=== PATIENT | male | born 1975 ===

== ENCOUNTER 2018-04-14 23:28 | Emergency (ER) | payer SELFPAY ==
[2018-04-14 23:47] VITALS: RESP 16
[2018-04-15] MEDS ORDERED: Sodium Chloride 0.9% 1,000 ML IV STA (00:19)
[2018-04-15] MEDS ORDERED: DiphenhydrAMINE 50 mg/ml Inj IV STA (00:19)
--- NOTE | 2018-04-15 00:43 | ED PDOC ---
HPI: Male Pain Time Seen by Provider: 04/14/18 23:57 Chief Complaint (Nursing): Male Genitourinary Chief Complaint (Provider): Male Genitourinary History Per: Patient History/Exam Limitations: no limitations Onset/Duration Of Symptoms: Days (x1) Associated Symptoms: denies: Nausea, Back Pain Additional Complaint(s): 42 y/o male with no pmhx presents to ER for evaluation of painless hematuria onset 1 day. Patient reports 3 episodes of urine of bright red with blood clots. He denies any back pain, fever, chills or penile discharge. PMD: non provided Past Medical History Reviewed: Historical Data, Nursing Documentation, Vital Signs Vital Signs: Last Vital Signs Temp 98.4 F 04/14/18 23:43 Pulse 116 H 04/14/18 23:43 Resp 16 04/14/18 23:43 BP 164/104 H 04/14/18 23:43 Pulse Ox 98 04/14/18 23:43 - Medical History PMH: HTN - Surgical History Surgical History: No Surg Hx - Family History Family History: States: Unknown Family Hx - Social History Current smoker - smoking cessation education provided: Yes (1 pack/month) Alcohol: Occasional Drugs: Denies - Home Medications Home Medications: Ambulatory Orders Medication Instructions Recorded Cyclobenzaprine [Cyclobenzaprine 10 mg PO TID PRN #15 tab 12/30/14 HCl] Naproxen [Naprosyn Tab] 500 mg PO BID PRN #20 tab 12/30/14 Ciprofloxacin [Cipro] 500 mg PO Q12 #14 tab 04/15/18 - Allergies Allergies/Adverse Reactions: Allergies Allergy/AdvReac Type Severity Reaction Status Date / Time No Known Allergies Allergy Verified 12/30/14 16:04 Review of Systems ROS Statement: Except As Marked, All Systems Reviewed And Found Negative Constitutional: Negative for: Fever, Chills Genitourinary Male: Positive for: Hematuria. Negative for: Penile Discharge Musculoskeletal: Negative for: Back Pain Physical Exam - Reviewed Nursing Documentation Reviewed: Yes Vital Signs Reviewed: Yes - Physical Exam Appears: Positive for: Non-toxic, No Acute Distress Head Exam: Positive for: ATRAUMATIC, NORMOCEPHALIC Skin: Positive for: Normal Color, Warm, Dry Eye Exam: Positive for: Normal appearance, EOMI, PERRL Neck: Positive for: Normal, Painless ROM, Supple Cardiovascular/Chest: Positive for: Regular Rate, Rhythm. Negative for: Murmur Respiratory: Positive for: Normal Breath Sounds. Negative for: Respiratory Distress Gastrointestinal/Abdominal: Positive for: Normal Exam, Soft. Negative for: Tenderness Back: Positive for: Normal Inspection. Negative for: L CVA Tenderness, R CVA Tenderness Extremity: Positive for: Normal ROM. Negative for: Pedal Edema, Deformity Neurologic/Psych: Positive for: Alert, Oriented (x3) - Laboratory Results Result Diagrams: 04/15/18 00:40 04/15/18 00:40 - ECG O2 Sat by Pulse Oximetry: 98 (RA) Pulse Ox Interpretation: Normal Medical Decision Making Medical Decision Making: Time: 12 Initial impression: 42 y/o male with painless hematuria Initial plan: --Labs --CT abd/pelvis 0233 CT Abdomen/Pelvis COMMENTS: The liver is moderately enlarged with decreased attenuation without mass or defect. There is no intra or extrahepatic biliary ductal dilatation. The spleen is normal. The gallbladder is within normal limits. The pancreas is of normal contour and attenuation characteristics. There is no evidence of right adrenal mass. Uncomplicated diverticulosis of the colon. 2.7 cm left adrenal myelolipoma. Moderate amount of fecal residue is noted in the large bowel. Uncomplicated colonic diverticulosis. 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 Moderate amount of fecal residue and large bowels. Both kidneys demonstrate prompt and equal nephrograms. The kidneys are normal in size, shape and configuration. There is no evidence of renal or ureteral mass. No renal or ureteral calculi are identified. There is no hydroureter or hydronephrosis. No evidence for appendicitis. There is no bowel wall thickening. No evidence for small or large bowel obstruction. There is no evidence of abdominal ascites or lymphadenopathy. There is no evidence of intrinsic or extrinsic bladder mass. There is no pelvic ascites or lymphadenopathy. Images of the lung bases show no evidence of pleural or parenchymal mass. There are no pleural effusions. The bony structures are free of lytic or blastic lesions. Bilateral fat containing inguinal hernias without incarceration IMPRESSION: Uncomplicated diverticulosis of the colon. 2.7 cm left adrenal myelolipoma. Moderate amount of fecal residue is noted in the large bowel. Uncomplicated colonic diverticulosis. 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 No evidence of acute abdominal or pelvic pathology. 0244 Patient remains comfortable, stable for discharge. Return precautions provided as well as following up with clinic and urology. Diagnosis is acute cystitis. Scribe Attestation: Documented by Genevieve Samano, acting as a scribe for Rafiq Gaines MD. Provider Scribe Attestation: All medical record entries made by the Scribe were at my direction and personally dictated by me. I have reviewed the chart and agree that the record accurately reflects my personal performance of the history, physical exam, medical decision making, and the department course for this patient. I have also personally directed, reviewed, and agree with the discharge instructions and disposition. Disposition - Clinical Impression Clinical Impression: Cystitis - Disposition Referrals: [facility] [Outside] Bruno De Leon MD [Staff Provider] - Disposition: Routine/Home Disposition Time: 02:44 Condition: STABLE Prescriptions: Ciprofloxacin [Cipro] 500 mg PO Q12 #14 tab Instructions: Acute Cystitis (DC) Forms: [facility] (Turkmen) Print Language: [place] ISLANDER
[2018-04-15 00:57] LABS: BASO # 0.1 K/uL (0.0-0.2); BASO % 1.6 % (0.0-2.0); EOS # 0.1 K/uL (0.0-0.7); EOS % 1.5 % (0.0-4.0); LYMPH # 2.1 K/uL (1.0-4.3); LYMPH % 27.4 % (20.0-40.0); MEAN CELL VOLUME 99.7 fl (80.0-94.0); MEAN PLATELET VOLUME 7.7 fl (7.2-11.7); MONO # 0.9 K/uL (0.0-0.8); MONO % 11.7 % (0.0-10.0); NEUT # 4.5 K/uL (1.8-7.0); NEUT % 57.8 % (50.0-75.0); NRBC % 0.1 % (0.0-0.0); RBC 4.48 Mil/uL (4.40-5.90); RED CELL DISTRIBUTION WIDTH 12.4 % (11.5-14.5); WHITE BLOOD COUNT 7.8 K/uL (4.8-10.8)
[2018-04-15 01:07] LABS: ALB/GLOB RATIO 1.1 (1.0-2.1); ALBUMIN 4.4 g/dL (3.5-5.0); ALT/SGPT 34 U/L (21-72); AST/SGOT 60 U/L (17-59); BLOOD UREA NITROGEN 12 mg/dl (9-20); CALCIUM 8.1 mg/dL (8.4-10.2); GFR NON-AFRICAN AMERICAN > 60
[2018-04-15 01:08] LABS: URINE BILIRUBIN NEGATIVE (NEGATIVE); URINE BLOOD LARGE (NEGATIVE); URINE CLARITY CLEAR (Clear); URINE COLOR STRAW (YELLOW); URINE GLUCOSE (UA) >=500 mg/dL (NEGATIVE); URINE LEUKOCYTE ESTERASE NEG Leu/uL (Negative); URINE PROTEIN NEGATIVE (NEGATIVE); URINE UROBILINOGEN 0.2-1.0 mg/dL (0.2-1.0)
[2018-04-15 01:25] LABS: HEMOGLOBIN 14.9 g/dL (12.0-18.0)
[2018-04-15 01:26] LABS: MEAN CORPUSCULAR HEMOGLOBIN 33.6 pg (27.0-31.0); MEAN CORPUSCULAR HGB CONC 33.3 g/dL (33.0-37.0)
[2018-04-15] MEDS ORDERED: Iohexol 300 100 ML IJ ONE (01:27)
[2018-04-15] MEDS ORDERED: Sodium Chloride 0.9% 50 ML IV ONE (01:27)
[2018-04-15 03:40] VITALS: BP 147/100; PULSE 87; TEMP 97.8; O2SAT 95
--- NOTE | 2018-04-15 10:54 | CT ---
Date of service: 04/15/2018 PROCEDURE: CT Abdomen and Pelvis with contrast HISTORY: hematuria COMPARISON: None available. TECHNIQUE: CT scan of the abdomen and pelvis was performed after administration of intravenous contrast. Oral contrast was not administered. Coronal and sagittal reformatted images were obtained. Contrast dose: Radiation dose: Total exam DLP = 931.48 mGy-cm. This CT exam was performed using one or more of the following dose reduction techniques: Automated exposure control, adjustment of the mA and/or kV according to patient size, and/or use of iterative reconstruction technique. FINDINGS: LOWER THORAX: The visualized lungs are clear. LIVER: Moderate hepatomegaly. Fatty liver. No gross lesion or ductal dilatation. GALLBLADDER AND BILE DUCTS: Well distended. No calcified gallstones, wall thickening or pericholecystic fluid. PANCREAS: Normal in size with homogeneous enhancement. No gross lesion or ductal dilatation. SPLEEN: Normal in size and appearance. ADRENALS: The right adrenal gland is normal without discrete nodule. There is a 2.7 x 2.9 cm myelolipoma in the left adrenal gland. KIDNEYS AND URETERS: Normal in size with homogeneous enhancement. No hydronephrosis. No solid mass. VASCULATURE: No aortic aneurysm. BOWEL: Evaluation of the bowel is limited in the absence of oral contrast. The small bowel loops are normal in caliber. There is moderate amount of stool in the colon and fecal stasis in the rectum. No bowel wall thickening or obstruction. APPENDIX: Normal appendix. PERITONEUM: No free fluid. No free air. LYMPH NODES: No enlarged lymph nodes. BLADDER: Well distended and normal in appearance. REPRODUCTIVE: There is a 2.7 x 2.3 cm well-circumscribed round midline lower density lesion in the prostate gland. BONES: No acute fracture. Within normal limits for the patient's age. OTHER FINDINGS: None. IMPRESSION: 1. No acute abdominal or pelvic abnormality. No nephrolithiasis or obstructive uropathy. 2. Moderate hepatomegaly and fatty liver. 3. 2.9 cm benign myelolipoma in the left adrenal gland. 4. Well-circumscribed round cystic lesion in the midline prostate gland, could represent a TURP defect, benign cyst or dilatation of the prostatic urethra. A preliminary report was provided by [employer].
== END 2018-04-15 03:39 | disposition home or self-care (01) ==
LOC: H.ER 23:28
DX: N30.01 Acute cystitis with hematuria (principal); K57.30 Diverticulosis of large intestine without perforation or abscess without bleeding; I10 Essential (primary) hypertension
CPT/HCPCS: 74177; 80053; 81003; 85025; 87086; 99283; J7030; Q9967

== ENCOUNTER 2018-07-12 17:57 | Inpatient (IN) | payer SELFPAY ==
[2018-07-12] MEDS ORDERED: Sodium Chloride 0.9% 1,000 ML IV STA ×3 (18:40→19:11)
--- NOTE | 2018-07-12 18:55 | ED PDOC ---
HPI: Abdomen Time Seen by Provider: 07/12/18 18:14 Chief Complaint (Nursing): Abdominal Pain Chief Complaint (Provider): Abdominal Pain History Per: Patient History/Exam Limitations: no limitations Onset/Duration Of Symptoms: Days (3X) Current Symptoms Are (Timing): Constant Severity: Moderate Additional Complaint(s): 42 year old male with past medical history of hypertension and Hypercholesterolemia presents to the ED with abdominal pain onset 3 days. Patient states that his last bowel movement was 5 days ago. Patient usually defecates 3 times a week. Patient reports that the pain has been constant and he has not taken any over the counter medication. Patient denies fever, nausea and vomiting. PMD: none provided Past Medical History Reviewed: Historical Data, Nursing Documentation, Vital Signs Vital Signs: Last Vital Signs Temp 98.3 F 07/12/18 18:02 Pulse 112 H 07/12/18 18:02 Resp 20 07/12/18 18:02 BP 140/84 07/12/18 18:02 Pulse Ox 97 07/12/18 18:02 BRAYDEN Report Viewed: Yes - Medical History PMH: HTN, Hypercholesterolemia, Hyperlipidemia Denies: Chronic Kidney Disease - Surgical History Surgical History: No Surg Hx - Family History Family History: States: No Known Family Hx - Social History Current smoker - smoking cessation education provided: Yes (less than 10 cigarettes daily ) Alcohol: Social - Home Medications Home Medications: Ambulatory Orders Medication Instructions Recorded Fenofibrate [Tricor] 145 mg PO DAILY #30 tab 07/13/18 Lisinopril/Hydrochlorothiazide 1 tab PO DAILY 07/13/18 [Lisinopril-Hctz 20-12.5 mg Tab] metFORMIN [glucOPHAGE] 500 mg PO BIDWM #60 tab 07/13/18 - Allergies Allergies/Adverse Reactions: Allergies Allergy/AdvReac Type Severity Reaction Status Date / Time No Known Allergies Allergy Verified 07/12/18 18:02 Review of Systems ROS Statement: Except As Marked, All Systems Reviewed And Found Negative Constitutional: Negative for: Fever Gastrointestinal: Positive for: Abdominal Pain (constant ). Negative for: Nausea, Vomiting Physical Exam - Reviewed Nursing Documentation Reviewed: Yes Vital Signs Reviewed: Yes - Physical Exam Appears: Positive for: In Acute Distress (Moderate painful distress ) Head Exam: Positive for: ATRAUMATIC, NORMAL INSPECTION, NORMOCEPHALIC Skin: Positive for: Normal Color, Warm, DRY Eye Exam: Positive for: EOMI, Normal appearance, PERRL Cardiovascular/Chest: Positive for: Regular Rate, Rhythm. Negative for: Murmur Respiratory: Positive for: Normal Breath Sounds Gastrointestinal/Abdominal: Positive for: Tenderness (left upper quadrant ). Negative for: Guarding, Rebound Extremity: Positive for: Normal ROM (upper and lower ) Neurological/Psych: Positive for: Awake, Alert, Normal Tone, Oriented. Negative for: Motor/Sensory Deficits, Facial Droop - Laboratory Results Result Diagrams: 07/13/18 07:00 07/13/18 07:00 - ECG O2 Sat by Pulse Oximetry: 97 (RA) Pulse Ox Interpretation: Normal Medical Decision Making Medical Decision Making: Time: 18:14 Initial Impression: Abdominal pain Initial Impression: * Abdomen and pelvis CT IV contrast only * Complete metabolic panel * ED urine dipstick (POC) * CBC with differentials Morphine 2 mg IV Sodium Chloride 0.9% 1,000 ml IV 125 mls/hr urinalysis 19:10 * VBG Shock Panel * Sodium Chloride 0.9% 1000 ml IV 1000 mls/hr * Glucose, blood, POC Patient to be signed out to Dr. Gaines at this time pending workup, reevaluation and final disposition. Scribe Attestation: Documented by Apollo Alford, acting as a scribe for Kym Hewitt MD Provider Scribe Attestation: All medical record entries made by the Scribe were at my direction and personally dictated by me. I have reviewed the chart and agree that the record accurately reflects my personal performance of the history, physical exam, medic al decision making, and the department course for this patient. I have also personally directed, reviewed, and agree with the discharge instructions and disposition. Disposition - Clinical Impression Clinical Impression: Pancreatitis - Patient ED Disposition Is Patient to be Admitted: Transfer of Care - Disposition Disposition: Transfer of Care Disposition Time: 19:00 Condition: STABLE Patient Signed Over To: Rafiq Gaines
[2018-07-12 19:21] LABS: BASO # 0.1 K/uL (0.0-0.2); BASO % 0.5 % (0.0-2.0); EOS # 0.1 K/uL (0.0-0.7); EOS % 0.8 % (0.0-4.0); HEMOGLOBIN 15.2 g/dL (12.0-18.0); LYMPH # 1.1 K/uL (1.0-4.3); LYMPH % 9.8 % (20.0-40.0); MEAN CELL VOLUME 97.8 fl (80.0-94.0); MEAN CORPUSCULAR HEMOGLOBIN 33.9 pg (27.0-31.0); MEAN CORPUSCULAR HGB CONC 34.7 g/dL (33.0-37.0); MEAN PLATELET VOLUME 7.6 fl (7.2-11.7); NEUT # 9.2 K/uL (1.8-7.0); NEUT % 79.9 % (50.0-75.0); NRBC % 0.2 % (0.0-0.0); PLATELET COUNT 209 K/uL (130-400); RED CELL DISTRIBUTION WIDTH 12.5 % (11.5-14.5); WHITE BLOOD COUNT 11.5 K/uL (4.8-10.8)
[2018-07-12 19:27] LABS: SQUAMOUS EPITHIAL < 1 /hpf (0-5); URINE BILIRUBIN NEGATIVE (NEGATIVE); URINE BLOOD NEGATIVE (NEGATIVE); URINE CLARITY SLIGHTY-CLOUDY (Clear); URINE COLOR YELLOW (YELLOW); URINE GLUCOSE (UA) >=500 mg/dL (NEGATIVE); URINE LEUKOCYTE ESTERASE NEG Leu/uL (Negative); URINE PROTEIN NEGATIVE (NEGATIVE); URINE UROBILINOGEN 0.2-1.0 mg/dL (0.2-1.0)
[2018-07-12 19:28] LABS: ALBUMIN 4.3 g/dL (3.5-5.0); BLOOD UREA NITROGEN 10 mg/dl (9-20); CALCIUM 9.1 mg/dL (8.4-10.2); GFR NON-AFRICAN AMERICAN > 60
[2018-07-12 19:59] LABS: ALT/SGPT 33 U/L (21-72); AST/SGOT 34 U/L (17-59)
[2018-07-12 20:10] LABS: VENOUS BLOOD GAS BASE EXCESS -1.2 mmol/L (0.0-2.0); VENOUS BLOOD GAS PCO2 39 mmHg (40-60); VENOUS BLOOD GAS PO2 29 mm/Hg (30-55); VENOUS BLOOD PH 7.39 (7.32-7.43)
--- NOTE | 2018-07-12 20:10 | ED PDOC ---
- Laboratory Results Result Diagrams: 07/13/18 07:00 07/13/18 07:00 Lab Results: Total Bilirubin 1.1 mg/dl (0.2-1.3) 07/12/18 19:04 AST 34 U/L (17-59) 07/12/18 19:04 ALT 33 U/L (21-72) 07/12/18 19:04 Alkaline Phosphatase 96 U/L (38-126) 07/12/18 19:04 Total Protein 8.6 G/DL (6.3-8.2) H 07/12/18 19:04 Albumin 4.3 g/dL (3.5-5.0) 07/12/18 19:04 Globulin 4.3 gm/dL (2.2-3.9) H 07/12/18 19:04 Albumin/Globulin Ratio 1.0 (1.0-2.1) 07/12/18 19:04 Urine Color Yellow (YELLOW) 07/12/18 19:04 Urine Clarity Slighty-cloudy (Clear) 07/12/18 19:04 Urine pH 6.0 (5.0-8.0) 07/12/18 19:04 Ur Specific [place] 1.040 (1.003-1.030) H 07/12/18 19:04 Urine Protein Negative mg/dL (NEGATIVE) 07/12/18 19:04 Urine Glucose (UA) >=500 mg/dL (NEGATIVE) 07/12/18 19:04 Urine Ketones 20 mg/dL (NEGATIVE) 07/12/18 19:04 Urine Blood Negative (NEGATIVE) 07/12/18 19: Urine Nitrate Negative (NEGATIVE) 07/12/18 19: Urine Bilirubin Negative (NEGATIVE) 07/12/18 19:04 Urine Urobilinogen 0.2-1.0 mg/dL (0.2-1.0) 07/12/18 19:04 Ur Leukocyte Esterase Neg Barbi/uL (Negative) 07/12/18 19:04 Urine RBC (Auto) 3 /hpf (0-3) 07/12/18 19:04 Urine Microscopic WBC < 1 /hpf (0-5) 07/12/18 19:04 Ur Squamous Epith Cells < 1 /hpf (0-5) 07/12/18 19:04 - ECG O2 Sat by Pulse Oximetry: 97 (RA) Pulse Ox Interpretation: Normal Medical Decision Making Medical Decision Makin:00 Patient signed out to this provider by Dr. Hewitt pending CT, re-evaluation and final disposition. 215 CT Abd Pelvis FINDINGS: LUNG BASES: The lung bases appear clear. No pleural effusions are seen. LIVER: There is hepatomegaly noted. The liver measured 19.9 cm in the midclavicular line. Associated hepatic steatosis is noted. GALLBLADDER AND BILE DUCTS: The gallbladder appears within normal limits. No radioopaque gallstones are seen. No biliary ductal dilatation is evident. PANCREAS: Peripancreatic inflammatory stranding is seen about the head-uncinate process and distal tail regions compatible with acute pancreatitis. SPLEEN: Unremarkable. ADRENAL GLANDS: A 3.2 cm left adrenal myelolipoma is again noted. Unremarkable right adrenal gland. KIDNEYS, URETERS, AND BLADDER: The kidneys appear within normal limits. There is no hydronephrosis or hydroureter. No urinary calculi are seen. The urinary bladder appeared normal in size and configuration. STOMACH AND BOWEL: There is mucosal wall thickening and fluid in the lumen of that the duodenum and small intestinal tract compatible with duodenitis and diffuse enteritis. Infectious or inflammatory etiologies are thought most likely.No evidence of bowel obstruction. No evidence suggesting colitis. APPENDIX: No evidence of acute appendicitis on CT examination. PERITONEUM: No free fluid. No free air. There is haziness in the central root of the mesentery compatible with mesenteriitis. Small bilateral inguinal hernias are identified which each contain fat; slightly larger in size on the right. LYMPH NODES: No lymphadenopathy is evident. REPRODUCTIVE: The seminal vesicles appeared normal and symmetrical in size. A 2.7 cm central prostatic benign cyst is again noted. VASCULATURE: No evidence of abdominal aortic aneurysm. SOFT TISSUES: Calcified injection granulomata are seen in the buttocks bilaterally. BONES: No aggressive appearing osseous lesion. No acute osseous pathology evident. IMPRESSION: 1. Evidence of acute pancreatitis involving the head-uncinate process and distal tail. 2. Evidence of duodenitis and diffuse enteritis. 3. Hepatomegaly with associated steatosis. 4. Evidence of mesenteritis in the central root of the mesentery. 5. 2.7 cm benign central prostatic cyst. 6. Small bilateral inguinal hernias which each contain fat. 00:50 On reevaluation patient reports persistent epigastric pain. Will admit patient. Condition is fair, diagnosis is acute pancreatitis. Case referred to Dr. Raza. Scribe Attestation: Documented by Blanca James and Roland Osman, acting as a scribe Kofi Gaines MD Provider Scribe Attestation: All medical record entries made by the Scribe were at my direction and personally dictated by me. I have reviewed the chart and agree that the record accurately reflects my personal performance of the history, physical exam, medical decision making, and the department course for this patient. I have also personally directed, reviewed, and agree with the discharge instructions and disposition Disposition - Clinical Impression Clinical Impression: Pancreatitis - POA Present On Arrival: None - Disposition Disposition: Admitted as In-Patient Disposition Time: 00:50 Condition: FAIR
[2018-07-12] MEDS ORDERED: Sodium Chloride 0.9% 100 ML ONE (21:04)
[2018-07-12] MEDS ORDERED: Iohexol 300 100 ML IJ ONE (21:04)
[2018-07-12 21:40] LABS: BANDS 2 % (0-2); BASOPHIL 1 % (0-2); EOSINOPHIL 1 % (0-7); LYMPHOCYTE 11 % (20-50); MONOCYTE 9 % (0-10); NEUTROPHIL 76 % (42-75); PLATELET ESTIMATE NORMAL (NORMAL); TOTAL CELLS COUNTED 100
[2018-07-12] MEDS ORDERED: Lactated Ringer's 1,000 ML IV STA (23:58)
[2018-07-13] LABS: LIPASE 135 U/L (23-300)
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
[2018-07-13] MEDS: Sodium Chloride 0.9% 1,000 ML IV SCH ×4 (02:25→12:06)
[2018-07-13 08:14] LABS: HEMOGLOBIN 13.6 g/dL (12.0-18.0); MEAN CELL VOLUME 99.2 fl (80.0-94.0); MEAN CORPUSCULAR HEMOGLOBIN 34.1 pg (27.0-31.0); MEAN CORPUSCULAR HGB CONC 34.3 g/dL (33.0-37.0); RBC 3.99 Mil/uL (4.40-5.90); RED CELL DISTRIBUTION WIDTH 12.7 % (11.5-14.5); WHITE BLOOD COUNT 9.5 K/uL (4.8-10.8)
[2018-07-13 08:19] LABS: INR 1.1; PROTHROMBIN TIME 12.1 Seconds (9.8-13.1)
[2018-07-13 08:21] LABS: PARTIAL THROMBOPLASTIN TIME 31.3 Seconds (25.6-37.1)
[2018-07-13 08:35] VITALS: BP 132/80; PULSE 103; RESP 20; TEMP 99.5
[2018-07-13 08:44] LABS: LDL CHOLESTEROL 53 mg/dL (0-129)
[2018-07-13 08:53] LABS: ALBUMIN 3.5 g/dL (3.5-5.0); ALT/SGPT 30 U/L (21-72); AMYLASE 54 U/L (30-110); AST/SGOT 21 U/L (17-59); BLOOD UREA NITROGEN 9 mg/dl (9-20); CALCIUM 8.3 mg/dL (8.4-10.2); GFR NON-AFRICAN AMERICAN > 60; HDL CHOLESTEROL 29 MG/DL (30-70); LIPASE 79 U/L (23-300)
[2018-07-13] MEDS ORDERED: Enoxaparin 40 mg Syringe SC SCH (09:00)
--- NOTE | 2018-07-13 12:16 | CT ---
Date of service: 07/12/2018 PROCEDURE: CT abdomen pelvis HISTORY: Abd pain, constipation X 5 days COMPARISON: Comparison made with prior CT scan abdomen and pelvis dated 04/15/2018. TECHNIQUE: Contiguous axial images of the abdomen pelvis performed following intravenous injection of approximately 95 cc Omnipaque 300 contrast material. Additional 2D sagittal and coronal sagittal reformats generated. Radiation dose: Total exam DLP = 971.82 mGy-cm. This CT exam was performed using one or more of the following dose reduction techniques: Automated exposure control, adjustment of the mA and/or kV according to patient size, and/or use of iterative reconstruction technique. FINDINGS: LOWER THORAX: Cardiomegaly. No significant pericardial effusion. Minor passive/dependent type atelectasis both posterior sulci. LIVER: Liver is enlarged measuring nearly 23 cm in CC dimension. Moderate-significant fatty hepatic infiltration. No obvious hepatic mass or collection.. Portal and splenic veins are opacified. GALLBLADDER AND BILE DUCTS: Gallbladder is physiologically distended with no evidence of intraluminal gallbladder calculi. PANCREAS: There are edematous inflammatory changes of the pancreatic head region and proximal body with surrounding infiltration and fluid. Findings are consistent with acute pancreatitis. Infiltration/inflammatory changes extend into the surrounding mesentery. There also appears to be some wall thickening of the 3rd and 4th portions of the duodenum likely reactive.. Infiltration changes also seen extending into the anterior right para renal space. SPLEEN: Unremarkable. No splenomegaly. ADRENALS: Findings consistent with myelolipoma left adrenal gland measuring approximately 2.7 cm.. KIDNEYS AND URETERS: Kidneys demonstrate symmetric nephrograms. No evidence of nephrolithiasis or hydronephrosis. BLADDER: Grossly unremarkable. REPRODUCTIVE: There is an approximately 2.8 x 2.3 cm low-attenuation focus in the posterior aspect of the prostate gland which could represent a proteinaceous cystic collection. Clinical correlation recommended; consider follow-up prostatic ultrasound or MRI of the prostate gland. APPENDIX: Normal appendix BOWEL: Evaluation of the bowel is limited due to the lack of oral contrast material. Stomach is incompletely distended with slight thick-walled appearance. Several loops of proximal small bowel exhibit mild wall thickening which may be reactive to the aforementioned pancreatitis however localized enteritis not excluded. Moderately large amount of stool seen throughout most of the colon consistent with this patient's history of constipation. PERITONEUM: As above. No free intraperitoneal air. Small fat containing umbilical hernia.. Bilateral fat containing inguinal hernias right larger than left. LYMPH NODES: Unremarkable. No enlarged lymph nodes. VASCULATURE: Unremarkable. No aortic aneurysm. No aortic atherosclerotic calcification or mural plaque present. BONES: Mild multilevel degenerative spondylosis of the thoracic and lumbar spine. OTHER FINDINGS: Incidental note made of several calcified injection granulomata both buttocks. IMPRESSION: Findings consistent with acute pancreatitis. Mild wall thickening of the duodenum and proximal small bowel likely reactive to the aforementioned adjacent inflammatory changes within and surrounding the pancreas. However, the possibility of a concomitant enteritis not excluded. Constipation. Hepatomegaly with moderate to significant fatty infiltration. Redemonstrated is a left adrenal myelolipoma. Redemonstrated is a 2.8 x 2.3 cm low-attenuation lesion within the prostate gland likely representing a proteinaceous cyst. This could be confirmed with follow-up prostatic ultrasound or MRI
--- NOTE | 2018-07-13 14:43 | CP.PCM.DIS ---
<Josselin Campbell - Last Filed: 07/13/18 15:19> Provider - Provider Date of Admission: 07/13/18 00:49 Attending physician: Connor Raza Primary care physician: [facility] Consults: 07/13/18 04:25 Social Work Referral Routine Comment: smoking cessation Physician Instructions: Reason For Exam: smoking cessation Time Spent in preparation of Discharge (in minutes): 25 Diagnosis - Discharge Diagnosis (1) Hypertriglyceridemia Status: Acute (2) Diabetes Status: Acute Hospital Course - Lab Results Lab Results: Most Recent Lab Values WBC 9.5 K/uL (4.8-10.8) 07/13/18 07:00 RBC 3.99 Mil/uL (4.40-5.90) L 07/13/18 07:00 Hgb 13.6 g/dL (12.0-18.0) 07/13/18 07:00 Hct 39.6 % (35.0-51.0) 07/13/18 07:00 MCV 99.2 fl (80.0-94.0) H 07/13/18 07:00 MCH 34.1 pg (27.0-31.0) H 07/13/18 07:00 MCHC 34.3 g/dL (33.0-37.0) 07/13/18 07:00 RDW 12.7 % (11.5-14.5) 07/13/18 07:00 Plt Count 197 K/uL (130-400) 07/13/18 07:00 MPV 7.6 fl (7.2-11.7) 07/12/18 19:04 Neut % (Auto) 79.9 % (50.0-75.0) H 07/12/18 19:04 Lymph % (Auto) 9.8 % (20.0-40.0) L 07/12/18 19:04 [place] % (Auto) 9.0 % (0.0-10.0) 07/12/18 19:04 Eos % (Auto) 0.8 % (0.0-4.0) 07/12/18 19:04 Baso % (Auto) 0.5 % (0.0-2.0) 07/12/18 19:04 Neut # (Auto) 9.2 K/uL (1.8-7.0) H 07/12/18 19:04 Lymph # (Auto) 1.1 K/uL (1.0-4.3) 07/12/18 19:04 [place] # (Auto) 1.0 K/uL (0.0-0.8) H 07/12/18 19:04 Eos # (Auto) 0.1 K/uL (0.0-0.7) 07/12/18 19:04 Baso # (Auto) 0.1 K/uL (0.0-0.2) 07/12/18 19:04 Neutrophils % (Manual) 76 % (42-75) H 07/12/18 19:04 Band Neutrophils % 2 % (0-2) 07/12/18 19:04 Lymphocytes % (Manual) 11 % (20-50) L 07/12/18 19:04 Monocytes % (Manual) 9 % (0-10) 07/12/18 19:04 Eosinophils % (Manual) 1 % (0-7) 07/12/18 19:04 Basophils % (Manual) 1 % (0-2) 07/12/18 19:04 Platelet Estimate Normal (NORMAL) 07/12/18 19:04 PT 12.1 Seconds (9.8-13.1) 07/13/18 07:00 INR 1.1 07/13/18 07:00 APTT 31.3 Seconds (25.6-37.1) 07/13/18 07:00 pO2 29 mm/Hg (30-55) L 07/12/18 20:02 VBG pH 7.39 (7.32-7.43) 07/12/18 20:02 VBG pCO2 39 mmHg (40-60) L 07/12/18 20:02 VBG HCO3 22.8 mmol/L 07/12/18 20:02 VBG Total CO2 24.8 mmol/L (22-28) 07/12/18 20:02 VBG O2 Sat (Calc) 58.7 % (40-65) 07/12/18 20:02 VBG Base Excess -1.2 mmol/L (0.0-2.0) L 07/12/18 20:02 VBG Potassium 4.5 mmol/L (3.6-5.2) 07/12/18 20:02 Sodium 132.0 mmol/L (132-148) 07/12/18 20:02 Chloride 100.0 mmol/L (98-107) 07/12/18 20:02 Glucose 364 mg/dL (75-110) H 07/12/18 20:02 Lactate 1.6 mmol/L (0.7-2.1) 07/12/18 20:02 FiO2 21.0 % 07/12/18 20:02 Sodium 138 mmol/l (132-148) 07/13/18 07:00 Potassium 3.8 MMOL/L (3.6-5.0) 07/13/18 07:00 Chloride 108 mmol/L (98-107) H 07/13/18 07:00 Carbon Dioxide 17 mmol/L (22-30) L 07/13/18 07:00 Anion Gap 17 (10-20) 07/13/18 07:00 BUN 9 mg/dl (9-20) 07/13/18 07:00 Creatinine 0.4 mg/dl (0.8-1.5) L 07/13/18 07:00 Est GFR ( Amer) > 60 07/13/18 07:00 Est GFR (Non-Af Amer) > 60 07/13/18 07:00 POC Glucose (mg/dL) 297 mg/dL (65-110) H 07/12/18 21:19 Random Glucose 244 mg/dL (75-110) H 07/13/18 07:00 Calcium 8.3 mg/dL (8.4-10.2) L 07/13/18 07:00 Phosphorus 2.6 mg/dl (2.5-4.5) 07/13/18 07:00 Magnesium 1.8 MG/DL (1.6-2.3) 07/13/18 07:00 Total Bilirubin 1.0 mg/dl (0.2-1.3) 07/13/18 07:00 AST 21 U/L (17-59) 07/13/18 07:00 ALT 30 U/L (21-72) 07/13/18 07:00 Alkaline Phosphatase 63 U/L (38-126) 07/13/18 07:00 Total Protein 7.0 G/DL (6.3-8.2) 07/13/18 07:00 Albumin 3.5 g/dL (3.5-5.0) 07/13/18 07:00 Globulin 3.4 gm/dL (2.2-3.9) 07/13/18 07:00 Albumin/Globulin Ratio 1.0 (1.0-2.1) 07/13/18 07:00 Triglycerides 1012 mg/DL (0-149) H 07/13/18 07:00 Cholesterol 362 mg/dL (0-199) H 07/13/18 07:00 LDL Cholesterol Direct 53 mg/dL (0-129) 07/13/18 07:00 HDL Cholesterol 29 MG/DL (30-70) L 07/13/18 07:00 Amylase 54 U/L (30-110) 07/13/18 07:00 Lipase 79 U/L (23-300) 07/13/18 07:00 TSH 3rd Generation 1.44 mIU/ML (0.46-4.68) 07/13/18 07:00 Venous Blood Potassium 4.5 mmol/L (3.6-5.2) 07/12/18 20:02 Urine Color Yellow (YELLOW) 07/12/18 19:04 Urine Clarity Slighty-cloudy (Clear) 07/12/18 19:04 Urine pH 6.0 (5.0-8.0) 07/12/18 19:04 Ur Specific [place] 1.040 (1.003-1.030) H 07/12/18 19:04 Urine Protein Negative mg/dL (NEGATIVE) 07/12/18 19:04 Urine Glucose (UA) >=500 mg/dL (NEGATIVE) 07/12/18 19:04 Urine Ketones 20 mg/dL (NEGATIVE) 07/12/18 19:04 Urine Blood Negative (NEGATIVE) 07/12/18 19:04 Urine Nitrate Negative (NEGATIVE) 07/12/18 19:04 Urine Bilirubin Negative (NEGATIVE) 07/12/18 19:04 Urine Urobilinogen 0.2-1.0 mg/dL (0.2-1.0) 07/12/18 19:04 Ur Leukocyte Esterase Neg Barbi/uL (Negative) 07/12/18 19:04 Urine RBC (Auto) 3 /hpf (0-3) 07/12/18 19:04 Urine Microscopic WBC < 1 /hpf (0-5) 07/12/18 19:04 Ur Squamous Epith Cells < 1 /hpf (0-5) 07/12/18 19:04 - Hospital Course Hospital Course: 42 yo M with prior history of prediabetes, hypertriglyceridemia, obesity, hypertension, presented to ED with 3 days of pressure like epigastric abdominal pain; admitted to [facility] due to abdominal pain and initially suspected pancreatitis based on CT abdomen, which also showed duodenitis. Lipase levels was not elevated (135). Triglycerides were elevated at 1012, and cholesterol 362 (LDL 53, HDL 29). He also had elevated blood glucose readings. On admission, he was made NPO, started on IV hydration at 300 ml/hr and pain was controlled with morphine. Repeat am lipase was 79. This morning, patient reported that he felt much better. Regular diet started, and patient was seen after lunch; tolerated lunch this afternoon without difficulty, pain, nausea or vomiting. He remained afebrile and hemodynamically stable throughout admission. He is stable for discharge at this time, with new prescriptions for metformin and fenofibrate. He has a follow up appointment at the [facility] on 07/22/18 at 11 am; patient is aware of appointment time. Discharge Exam - Head Exam Head Exam: ATRAUMATIC, NORMOCEPHALIC - Eye Exam Eye Exam: Normal appearance - ENT Exam ENT Exam: Mucous Membranes Moist - Respiratory Exam Respiratory Exam: Clear to PA & Lateral, NORMAL BREATHING PATTERN - Cardiovascular Exam Cardiovascular Exam: REGULAR RHYTHM, +S1, +S2 - GI/Abdominal Exam GI & Abdominal Exam: Normal Bowel Sounds, Soft. absent: Tenderness - Extremities Exam Extremities exam: normal inspection - Neurological Exam Neurological exam: Alert, Oriented x3 - Skin Skin Exam: Dry, Normal Color Discharge Plan - Discharge Medications Prescriptions: Fenofibrate [Tricor] 145 mg PO DAILY #30 tab metFORMIN [glucOPHAGE] 500 mg PO BIDWM #60 tab - Follow Up Plan Condition: FAIR Disposition: HOME/ ROUTINE Instructions: Acute Abdomen (Belly Pain), Adult (DC) Referrals: [facility] [Outside] - 07/22/18 11:00 am () <Yang Bronson - Last Filed: 07/14/18 09:17> Provider - Provider Date of Admission: 07/13/18 00:49 Attending physician: Connor Raza Consults: 07/13/18 04:25 Social Work Referral Routine Comment: smoking cessation Physician Instructions: Reason For Exam: smoking cessation [facility] Course - Lab Results Lab Results: Most Recent Lab Values WBC 9.5 K/uL (4.8-10.8) 07/13/18 07:00 RBC 3.99 Mil/uL (4.40-5.90) L 07/13/18 07:00 Hgb 13.6 g/dL (12.0-18.0) 07/13/18 07:00 Hct 39.6 % (35.0-51.0) 07/13/18 07:00 MCV 99.2 fl (80.0-94.0) H 07/13/18 07:00 MCH 34.1 pg (27.0-31.0) H 07/13/18 07:00 MCHC 34.3 g/dL (33.0-37.0) 07/13/18 07:00 RDW 12.7 % (11.5-14.5) 07/13/18 07:00 Plt Count 197 K/uL (130-400) 07/13/18 07:00 MPV 7.6 fl (7.2-11.7) 07/12/18 19:04 Neut % (Auto) 79.9 % (50.0-75.0) H 07/12/18 19:04 Lymph % (Auto) 9.8 % (20.0-40.0) L 07/12/18 19:04 [place] % (Auto) 9.0 % (0.0-10.0) 07/12/18 19:04 Eos % (Auto) 0.8 % (0.0-4.0) 07/12/18 19:04 Baso % (Auto) 0.5 % (0.0-2.0) 07/12/18 19:04 Neut # (Auto) 9.2 K/uL (1.8-7.0) H 07/12/18 19:04 Lymph # (Auto) 1.1 K/uL (1.0-4.3) 07/12/18 19:04 [place] # (Auto) 1.0 K/uL (0.0-0.8) H 07/12/18 19:04 Eos # (Auto) 0.1 K/uL (0.0-0.7) 07/12/18 19:04 Baso # (Auto) 0.1 K/uL (0.0-0.2) 07/12/18 19:04 Neutrophils % (Manual) 76 % (42-75) H 07/12/18 19:04 Band Neutrophils % 2 % (0-2) 07/12/18 19:04 Lymphocytes % (Manual) 11 % (20-50) L 07/12/18 19:04 Monocytes % (Manual) 9 % (0-10) 07/12/18 19:04 Eosinophils % (Manual) 1 % (0-7) 07/12/18 19:04 Basophils % (Manual) 1 % (0-2) 07/12/18 19:04 Platelet Estimate Normal (NORMAL) 07/12/18 19:04 PT 12.1 Seconds (9.8-13.1) 07/13/18 07:00 INR 1.1 07/13/18 07:00 APTT 31.3 Seconds (25.6-37.1) 07/13/18 07:00 pO2 29 mm/Hg (30-55) L 07/12/18 20:02 VBG pH 7.39 (7.32-7.43) 07/12/18 20:02 VBG pCO2 39 mmHg (40-60) L 07/12/18 20:02 VBG HCO3 22.8 mmol/L 07/12/18 20:02 VBG Total CO2 24.8 mmol/L (22-28) 07/12/18 20:02 VBG O2 Sat (Calc) 58.7 % (40-65) 07/12/18 20:02 VBG Base Excess -1.2 mmol/L (0.0-2.0) L 07/12/18 20:02 VBG Potassium 4.5 mmol/L (3.6-5.2) 07/12/18 20:02 Sodium 132.0 mmol/L (132-148) 07/12/18 20:02 Chloride 100.0 mmol/L (98-107) 07/12/18 20:02 Glucose 364 mg/dL (75-110) H 07/12/18 20:02 Lactate 1.6 mmol/L (0.7-2.1) 07/12/18 20:02 FiO2 21.0 % 07/12/18 20:02 Sodium 138 mmol/l (132-148) 07/13/18 07:00 Potassium 3.8 MMOL/L (3.6-5.0) 07/13/18 07:00 Chloride 108 mmol/L (98-107) H 07/13/18 07:00 Carbon Dioxide 17 mmol/L (22-30) L 07/13/18 07:00 Anion Gap 17 (10-20) 07/13/18 07:00 BUN 9 mg/dl (9-20) 07/13/18 07:00 Creatinine 0.4 mg/dl (0.8-1.5) L 07/13/18 07:00 Est GFR ( Amer) > 60 07/13/18 07:00 Est GFR (Non-Af Amer) > 60 07/13/18 07:00 POC Glucose (mg/dL) 297 mg/dL (65-110) H 07/12/18 21:19 Random Glucose 244 mg/dL (75-110) H 07/13/18 07:00 Hemoglobin A1c 12.9 % (4.2-6.5) H D 07/13/18 07:00 Calcium 8.3 mg/dL (8.4-10.2) L 07/13/18 07:00 Phosphorus 2.6 mg/dl (2.5-4.5) 07/13/18 07:00 Magnesium 1.8 MG/DL (1.6-2.3) 07/13/18 07:00 Total Bilirubin 1.0 mg/dl (0.2-1.3) 07/13/18 07:00 AST 21 U/L (17-59) 07/13/18 07:00 ALT 30 U/L (21-72) 07/13/18 07:00 Alkaline Phosphatase 63 U/L (38-126) 07/13/18 07:00 Total Protein 7.0 G/DL (6.3-8.2) 07/13/18 07:00 Albumin 3.5 g/dL (3.5-5.0) 07/13/18 07:00 Globulin 3.4 gm/dL (2.2-3.9) 07/13/18 07:00 Albumin/Globulin Ratio 1.0 (1.0-2.1) 07/13/18 07:00 Triglycerides 1012 mg/DL (0-149) H 07/13/18 07:00 Cholesterol 362 mg/dL (0-199) H 07/13/18 07:00 LDL Cholesterol Direct 53 mg/dL (0-129) 07/13/18 07:00 HDL Cholesterol 29 MG/DL (30-70) L 07/13/18 07:00 Amylase 54 U/L (30-110) 07/13/18 07:00 Lipase 79 U/L (23-300) 07/13/18 07:00 TSH 3rd Generation 1.44 mIU/ML (0.46-4.68) 07/13/18 07:00 Venous Blood Potassium 4.5 mmol/L (3.6-5.2) 07/12/18 20:02 Urine Color Yellow (YELLOW) 07/12/18 19:04 Urine Clarity Slighty-cloudy (Clear) 07/12/18 19:04 Urine pH 6.0 (5.0-8.0) 07/12/18 19:04 Ur Specific [place] 1.040 (1.003-1.030) H 07/12/18 19:04 Urine Protein Negative mg/dL (NEGATIVE) 07/12/18 19:04 Urine Glucose (UA) >=500 mg/dL (NEGATIVE) 07/12/18 19:04 Urine Ketones 20 mg/dL (NEGATIVE) 07/12/18 19:04 Urine Blood Negative (NEGATIVE) 07/12/18 19:04 Urine Nitrate Negative (NEGATIVE) 07/12/18 19:04 Urine Bilirubin Negative (NEGATIVE) 07/12/18 19:04 Urine Urobilinogen 0.2-1.0 mg/dL (0.2-1.0) 07/12/18 19:04 Ur Leukocyte Esterase Neg Barbi/uL (Negative) 07/12/18 19:04 Urine RBC (Auto) 3 /hpf (0-3) 07/12/18 19:04 Urine Microscopic WBC < 1 /hpf (0-5) 07/12/18 19:04 Ur Squamous Epith Cells < 1 /hpf (0-5) 07/12/18 19:04 Attending/Attestation - Attestation I have personally seen and examined this patient.: Yes I have fully participated in the care of the patient.: Yes I have reviewed all pertinent clinical information, including history, physical exam and plan: Yes Notes (Text): 07/14/18 09:17 Patient seen and examined with resident. Case discussed and agreed with assessment. Patient discharged in stable condition.
[2018-07-13 20:13] VITALS: O2SAT 97
== END 2018-07-13 14:57 | disposition home or self-care (01) | DRG 282 ==
LOC: H.ER 17:57 → H.ERHOLD 07-13 00:49 → H.MEDSURG1 07-13 03:04
PROVIDERS: ADMIT Internal Medicine; ATTEND Internal Medicine
DX: K85.90 Acute pancreatitis without necrosis or infection, unspecified (principal); E11.65 Type 2 diabetes mellitus with hyperglycemia; I10 Essential (primary) hypertension; K29.80 Duodenitis without bleeding; K52.9 Noninfective gastroenteritis and colitis, unspecified; N42.83 Cyst of prostate; E78.1 Pure hyperglyceridemia; E78.5 Hyperlipidemia, unspecified; E78.00 Pure hypercholesterolemia, unspecified; E66.9 Obesity, unspecified; Z68.37 Body mass index [BMI] 37.0-37.9, adult; F17.210 Nicotine dependence, cigarettes, uncomplicated; Z79.84 Long term (current) use of oral hypoglycemic drugs